=== PATIENT | female | born 1990 | race Caucasian/White ===

== ENCOUNTER 2020-05-30 09:45 | Emergency (ER) | payer OTHER ==
[~2020-05-30] VITALS: Ht 160 cm; Wt 79.5 kg
[2020-05-30 09:51] VITALS: TEMP 98.9
[2020-05-30] MEDS ORDERED: PERCOCET 325 MG1 TA2 PO (11:39)
[2020-05-30 12:24] VITALS: BP 124/76; PULSE 78
== END 2020-05-30 12:24 | disposition home or self-care (01) ==
LOC: COL.ER 09:45
DX: S82.435A Nondisplaced oblique fracture of shaft of left fibula, initial encounter for closed fracture (principal); F10.920 Alcohol use, unspecified with intoxication, uncomplicated; W19.XXXA Unspecified fall, initial encounter
CPT/HCPCS: Q4041